=== PATIENT | male | born 1980 | race Caucasian/White ===

== ENCOUNTER → 2023-07-16 06:57 | Outpatient (CLI) | payer OTHER, SELFPAY ==
[2023-07-16 07:49] LABS: Alanine Aminotransferase 154 IU/L (<50); Albumin 4.6 g/dL (3.5-5.0); Albumin Globulin Ratio 1.4 (1.0-2.8); Alkaline Phosphatase 89 U/L (38-126); Aspartate Aminotransferase 68 IU/L (17-59); BUN Creatinine Ratio 9.3 (6-22); Bilirubin Total 0.5 mg/dL (0.2-1.3); Blood Urea Nitrogen 10 mg/dL (9-20); Calcium 9.3 mg/dL (8.4-10.2); Carbon Dioxide 23 mmol/L (22-32); Chloride 108 mmol/L (98-107); Estimated Glomerular Filt Rate > 60 mL/min (>60); Globulin 3.3 g/dL (1.7-4.1); Glucose 107 mg/dL (70-100); HEMOLYSIS < 15 (0-50); Potassium 3.8 mmol/L (3.4-5.1); Sodium 139 mmol/L (137-145); Total Protein 7.9 g/dL (6.3-8.2)
[2023-07-16 08:19] LABS: Appearance Urine UA CLEAR; Bilirubin Urine UA NEGATIVE (NEGATIVE); Color Urine UA YELLOW; Glucose Urine UA NEGATIVE (Negative); Ketones Urine UA NEGATIVE (NEGATIVE); Leukocyte Esterase Urine UA NEGATIVE (NEGATIVE); Nitrite Urine UA NEGATIVE (Negative); Occult Blood Urine UA TRACE-INTACT (Negative); Protein Urine UA NEGATIVE (Negative); Specific Gravity Urine UA >=1.030 (1.000-1.035); Urobilinogen Urine UA 0.2 E.U./dL (0.2)
[2023-07-16 08:22] LABS: Urine Volume 10mL (spun)
[2023-07-16 08:25] LABS: Bacteria Urine None Seen; Culture Indicated Urine Cult Not Indicated; RBC Urine 0-1/HPF (0-5/HPF); Squamous Epithelial Cell Urine 1-5 /HPF (0-5/HPF); WBC Urine None Seen (0-5/HPF)
== END ==
PROVIDERS: Referring Provider Chiropractor; Visit Provider Chiropractor
DX: N18.9 Chronic kidney disease, unspecified (principal); R00.0 Tachycardia, unspecified; R06.02 Shortness of breath
CPT/HCPCS: 36415; 80053; 81001; 93005; 93010

== ENCOUNTER → 2023-07-24 07:04 | Outpatient (CLI) | payer OTHER, SELFPAY ==
--- NOTE | 2023-07-24 07:05 | DI.ECHO.S_ITS ---
[facility]---------+ [facility] : : [address] : : [place] : : [id number] : : Phone: [phone] Echocardiogram Report + + :Name: SOFIA DEE Study Date: 07/24/2023 Height: 72 in : :Hospital ReadingLocation: Weight: 250 lb : : Gender: Male BSA: 2.3 m2 : :: 1980 Age: 42 yrs BP: 124/98 mmHg: :Reason For Study: TACHYCARDIA : :Ordering Physician: ANAHY, : :SREEKANTH Performed By: Rosalba Redding : :Referring: SREEKANTH HIGGINBOTHAM : + + Interpretation Summary The patient was in sinus tachycardia with heart rates between 88-100 bpm during the exam. The left ventricle is normal in size and wall thickness. The ejection fraction is estimated to be 50-55%. The right ventricle is normal size. Visually RV systolic function preserved. The aortic valve appears to be bicuspid. There is no aortic valve stenosis. No aortic regurgitation is present. The IVC is of normal diameter and collapses greater than 50% with a sniff. This suggests a low right atrial pressure of 3 mm Hg. Ao root diam: 4.1 cm.BSA: 2.3 m2, hence no significant enlargement. Procedure: A two-dimensional transthoracic echocardiogram with color flow and Doppler was performed. The study quality was technically adequate. There is no prior echocardiogram noted for this patient. The patient was in sinus tachycardia with heart rates between 88-100 bpm during the exam. Left Ventricle: The left ventricle is normal in size and wall thickness. There is no thrombus. The ejection fraction is estimated to be 50-55%. There are no focal wall motion abnormalities. Diastolic function could not be accurately assessed due to tachycardia. Right Ventricle: The right ventricle is normal size. Visually RV systolic function preserved. Atria: The left atrial size is normal. Right atrial size is normal. There is no Doppler evidence for an interatrial shunt. Mitral Valve: The mitral valve is normal in structure and function. There is trace mitral regurgitation. Aortic Valve: The aortic valve is bicuspid. There is no aortic valve stenosis. No aortic regurgitation is present. Tricuspid Valve: The tricuspid valve is normal in structure and function. There is trace tricuspid regurgitation. Pulmonary artery pressures cannot be estimated because of the lack of a measurable TR jet velocity. Pulmonic Valve: The pulmonic valve leaflets are thin and pliable; valve motion is normal. There is no pulmonic valvular regurgitation. Great Vessels: The aortic root is mildly dilated. The dimensions of the ascending aorta are normal. The IVC is of normal diameter and collapses greater than 50% with a sniff. This suggests a low right atrial pressure of 3 mm Hg. Pericardium/ Pleura There is no pericardial effusion. There is no pleural effusion. MMode/2D Measurements & Calculations LVIDd: 5.2 cm LVOT diam: 2.2 cm LVIDs: 3.4 cm Ao root diam: 4.1 cm FS: 34.5 % asc Aorta Diam: 3.1 cm IVSd: 0.99 cm Ao Arch Diam (Prox Trans): 2.9 cm LVPWd: 1.0 cm LV rushing. diameter/BSA (cm/m^2): 2.2 LV sys. diameter/BSA (cm/m^2): 1.5 LA A2 area: 15.8 cm2 RA long axis: 5.4 cm LA A4 area: 15.9 cm2 RA area: 17.2 cm2 LA length (vol): 5.3 cm RA vol: 46.2 ml LA vol: 40.1 ml RA : 19.7 ml/m2 LA vol index: 17.1 ml/m2 IVC diam: 1.5 cm RVD1 (basal): 3.3 cm RVD2 (mid): 3.1 cm TAPSE: 1.5 cm Doppler Measurements & Calculations Ao V2 max: 92.1 cm/sec LVOT Max Moses: 75.5 cm/sec Ao V2 mean: 72.3 cm/sec LV V1 max P.3 mmHg Ao max P.4 mmHg LV V1 VTI: 14.2 cm Ao mean P.2 mmHg YOEL(I,D): 3.1 cm2 Ao V2 VTI: 17.9 cm YOEL(V,D): 3.2 cm2 sev ratio: 0.79 YOEL indexed to BSA (cm^2/m^2): 1.3 Med Peak E' Moses: 13.6 cm/sec TR max moses: 191.1 cm/sec Lat Peak E' Moses: 7.4 cm/sec TR max P.6 mmHg PA V2 max: 92.5 cm/sec PA V2 mean: 69.2 cm/sec PA mean P.1 mmHg PA pr(Accel): 37.9 mmHg SV(LVOT): 55.5 ml Reading Physician:11:54 AM
== END ==
PROVIDERS: Referring Provider Chiropractor; Visit Provider Chiropractor
DX: Q23.1 Congenital insufficiency of aortic valve (principal); I77.810 Thoracic aortic ectasia; N18.9 Chronic kidney disease, unspecified; R00.0 Tachycardia, unspecified; R06.02 Shortness of breath
CPT/HCPCS: 93306

== ENCOUNTER → 2023-07-24 07:06 | Outpatient (CLI) | payer OTHER, SELFPAY | PROVIDERS: Referring Provider Chiropractor; Visit Provider Chiropractor | DX: N18.9 Chronic kidney disease, unspecified (principal); R00.0 Tachycardia, unspecified; R06.02 Shortness of breath | CPT/HCPCS: 94010 ==

== ENCOUNTER 2025-02-06 07:48 | Day surgery (SDC) | payer OTHER, SELFPAY ==
[2025-02-03 11:36] VITALS: BMI 36.6
[2025-02-06 08:05] VITALS: BP 126/83; PULSE 101; RESP 17; TEMP 37.1; O2SAT 100
[2025-02-06] MEDS: LACTATED RINGERS 1,000 ML 21 ML IV (08:20)
--- NOTE | 2025-02-06 08:56 | P.HP_ITS ---
History of Present Illness History of Present Illness Date Patient Seen: 02/06/25 Time Patient Seen: 08:56 Chief complaint: Desired sterility Narrative: 43 y/o M referred to Urology clinic to discuss a possible vasectomy. Briefly, he is currently and has two biological children (age 16 and 13). He is adamant that he does not want any additional children. He otherwise does not take any blood thinners and denies any prior traumas or surgeries. [facility] Medical History ROSANA on CPAP History of depression Hx of chest pain History of asthma Hx of chronic arthritis Hx of iron deficiency anemia Surgical History History of photorefractive keratectomy (PRK) (2011) Hx of knee surgery (2012) Family History Father Cancer Gout Hypertension Mother Hypertension Migraines Social History marital status: number of children: 2 Smoking Status: Former smoker Tobacco: How many years used: 21 alcohol intake: current caffeine: Yes Type(s) of exercise: aerobic and weight lifting frequency: 1-2 times per week duration: 60-90 minutes/day Meds Home Medications and Allergies Allergies Allergy/AdvReac Type Severity Reaction Status Date / Time nickel Allergy Unknown Verified 02/06/25 08:03 shellfish derived Allergy Unknown Verified 02/06/25 08:03 Review of Systems Review of Systems Narrative: A complete ROS was completed with all pertinent positives and negatives documented in HPI. All other systems were reviewed and are negative. Exam Vital Signs (past 8 hours): - 02/06/25 08:05 Temperature 98.7 F Pulse Rate 101 H Respiratory Rate 17 Blood Pressure 126/83 Pulse Oximetry 100 Oxygen Delivery Method Room Air Oxygen Delivery Method Room Air Narrative Exam Narrative: GEN: Alert and oriented X3. No acute distress. Well-nourished. EYES: PERRLA, EOMI. HENT: Moist mucus membranes, no scleral icterus, normal neck ROM. RESP: Unlabored breathing, equal rise and fall of chest bilaterally, no cyanosis appreciated. CV: No peripheral edema, unremarkable heart rate. ABD: Soft, non-tender, non-distended, no palpable masses. : Unremarkable penis, no urethral discharge, no meatal stenosis. Bilaterally descended testicles, firm, no testicular masses, no hydrocele/varicocele noted bilaterally. Able to palpate right vas deferens w/ moderate difficulty secondary to thick spermatic cord and thick scrotum, unable to definitively palpate left vas deferens secondary to thick spermatic cord and thick scrotum. EXT: No edema, clubbing or cyanosis. SKIN: No rashes or lesions. NEURO: No focal neurologic deficits, CN II-XII grossly intact. PSYCH: Cooperative, appropriate mood and affect. Assessment & Plan Assessment and plan (1) Sterilization consult: Status: Acute Plan: 43 y/o M who is currently and has two biological children and is adamant that he does not want additional children. Discussed risks of the procedure in detail to include pain, bleeding, infection, hematoma development, 1% failure rate requiring a repeat procedure, inadvertent injury to the testicular artery leading to testicular atrophy/loss, chronic pain and the 1 in 2000 chance that despite him having no sperm or rare non-motile sperm on his post-vasectomy semen analysis that the vas deferens somehow reconnects and leads to sperm within his ejaculate within his lifetime. Discussed that he should refrain from heavy lifting for 7-10 days, no sexual activity for 7-10 days, continue using contraception until he has a semen analysis that notes that his procedure was a success and that he should have his semen analysis performed 3 months from now after at least 20 ejaculations. Discussed that due to his difficult anatomy (thick spermatic cord and thick scrotum) and my inability to definitively palpate his left vas deferens in clinic today, would strongly recommend that we pursue a vasectomy under anesthesia. Could still offer a vasectomy in clinic, however, it will likely take much longer than normal and I may be unable to complete it secondary to his anatomy and would require completion under anesthesia. After careful consideration, he has decided to move forward with his procedure under anesthesia. Time-Based Coding :: [TOTAL MINUTES] spent with patient and on the chart (including review of chart, obtaining history, exam, reviewing outside data, placing orders, documenting exam and treatment plan, and counseling patient) on [DATE]. [employer] Equipment Operator Document charge(s): Yes Charge Codes Inpatient/observation care including admit and discharge same day: [id number]
--- NOTE | 2025-02-06 10:00 | SUR.OPER ---
Supine on padded OR bed, head on pillow, arms secured on padded arm boards at <90 degrees abduction, legs uncrossed, safety belt at thigh, tape over blanket over lower legs.
[2025-02-06] MEDS: BUPivacaine 0.25% (PF) 10 ML VIAL 30 ML INJ (10:08)
[2025-02-06] MEDS: LIDOCAINE 1% 20 ML INJ (10:10)
[2025-02-06] MEDS: BACITRACIN 28 GM OINT 1 APPLIC TOP (10:14)
--- NOTE | 2025-02-06 10:18 | P.OP_ITS ---
Operative Date/Time/Diagnoses Date of procedure: 02/06/25 Time of procedure: 09:45 Pre-op diagnosis: Desired sterility Post-op diagnosis: same Procedure & Clinicians Procedure: Vasectomy Same procedure(s) as scheduled: Yes Indications: 44 y/o M who is currently and has two biological children and is adamant that he does not want additional children. Discussed risks of the procedure in detail to include pain, bleeding, infection, hematoma development, 1% failure rate requiring a repeat procedure, inadvertent injury to the testic ular artery leading to testicular atrophy/loss, chronic pain and the in 1999 chance that despite him having no sperm or rare non-motile sperm on his post- vasectomy semen analysis that the vas deferens somehow reconnects and leads to sperm within his ejaculate within his lifetime. Discussed that he should refrain from heavy lifting for 7-10 days, no sexual activity for 7-10 days, continue using contraception until he has a semen analysis that notes that his procedure was a success and that he should have his semen analysis performed 3 months from now after at least 20 ejaculations. Discussed that due to his difficult anatomy (thick spermatic cord and thick scrotum) and my inability to definitively palpate his left vas deferens in clinic today, would strongly recommend that we pursue a vasectomy under anesthesia. Could still offer a vasectomy in clinic, however, it will likely take much longer than normal and I may be unable to complete it secondary to his anatomy and would require completion under anesthesia. After careful consideration, he has decided to move forward with his procedure under anesthesia. Surgeon: Kain Pop Assisted?: No Anesthesia Type: General Operative Notes Findings: Thick scrotum, small vas deferens noted bilaterally Closure Type: primary Specimen(s): none sent Applied: none Estimated Blood Loss (mL): 5 Procedure in detail: Procedure: Vasectomy CPT Code: 49483 Indication: 44 y/o M who is currently and has two biological children and is adamant he does not want any additional children. Following informed consent, patient was positioned supine and prepped and draped in the standard sterile fashion on the operating room table. A total of 14cc of 1:1 mixture of 2% Lidocaine plain and 0.5% Marcaine plain was utilized for anesthetic throughout the procedure. The right vas deferens was isolated underneath the skin and local anesthetic was instilled into the scrotum. A 1cm incision was made using an 11 blade. The subcutaneous tissue was then bluntly dissected using curved sharp hemostats. The vas deferens was isolated using the vas clamp and elevated out of the incision. A small surgical clip was then placed on the distal and proximal aspect of the vas deferens to allow for sharp excision of 1cm of vas deferens. The testicular and abdominal ends of the vas were then fulgurated using electrocautery. Hemostasis was evaluated and noted to be excellent. The procedure was then repeated in similar fashion on the left side. The incision were then closed using 4-0 Chromic in a figure of 8 fashion. Anesthesia was reversed, he was extubated in the OR and transferred to the PACU in stable condition for recovery. Complications: none Post-operative Condition: stable Disposition: PACU Plan for aftercare: Will perform a semen analysis in 3 months and be contacted with the results over the phone.
[2025-02-06 10:25] VITALS: BP 125/71; PULSE 102; RESP 20; O2SAT 99
[2025-02-06 10:26] VITALS: BP 132/74; PULSE 106; RESP 18; TEMP 36.6; O2SAT 96
[2025-02-06 10:30] VITALS: BP 130/61; PULSE 96; RESP 20; O2SAT 96
[2025-02-06 10:35] VITALS: BP 134/74; PULSE 96; RESP 20; TEMP 36.1; O2SAT 98
[2025-02-06] MEDS: ACETAMINOPHEN IV 1,000 MG/100 ML VIAL 400 MG IV (10:51)
[2025-02-06 11:11] VITALS: BP 126/83; PULSE 101; RESP 16; TEMP 37.1; O2SAT 10
== END 2025-02-06 11:21 | disposition home or self-care (01) ==
PROVIDERS: Referring Provider Urology; Visit Provider Urology
PROC: (CPT 55250; principal; 2025-02-06 09:15)
DX: Z30.2 Encounter for sterilization (principal); R23.4 Changes in skin texture; Q55.4 Other congenital malformations of vas deferens, epididymis, seminal vesicles and prostate
CPT/HCPCS: 55250; J0131; J0687; J0689; J1100; J1885; J2405; J2704; J3010; J3490; J7120